=== PATIENT | female | born 1970 | race African-American/Black ===

== ENCOUNTER 2020-11-15 10:50 | Outpatient (CLI) | payer OTHER, SELFPAY | END 2020-11-15 10:51 | disposition home or self-care (01) | LOC: ANHAUDIO 10:52 | PROVIDERS: PCP Family Medicine | DX: H69.93 Unspecified Eustachian tube disorder, bilateral (principal) | CPT/HCPCS: 92552; 92556; 92567 ==

== ENCOUNTER 2021-05-17 07:31 | Outpatient (CLI) | payer OTHER, SELFPAY | END 2021-05-17 07:32 | disposition home or self-care (01) | LOC: ANHAUDIO 07:34 | PROVIDERS: PCP Family Medicine; Visit Provider Otolaryngology | DX: R42 Dizziness and giddiness (principal) | CPT/HCPCS: 92537; 92540; 92546 ==